=== PATIENT | female | born 1955 | race Caucasian/White ===

== ENCOUNTER → 2024-05-13 06:54 | Outpatient (REF) | payer MEDICARE, OTHER, SELFPAY ==
[2024-05-13 07:29] LABS: Urine Albumin Negative (Neg - Trace); Urine Bilirubin Negative (Negative); Urine Character Clear (Clear); Urine Color Yellow; Urine Glucose Negative (Negative); Urine Ketone Negative (Negative); Urine Leukocyte Trace (Negative); Urine Nitrite Negative (Negative); Urine Occult Blood Negative (Negative); Urine Specific Gravity 1.015 (<1.030); Urine Urobilinogen Negative (Neg - 1+)
[2024-05-13 07:38] LABS: % Basophils 1.1 % (0-2); % Eosinophils 8.3 % (0-6); % Immature Granulocytes 0.2 % (0-0.5); % Lymphocytes 41.1 % (20.5-51.1); % Monocytes 12.3 % (1.7-9.3); Absolute Basophils 0.1 10^3/uL (0-0.2); Absolute Eosinophils 0.4 10^3/uL (0-0.7); Absolute Lymphocytes 1.9 10^3/uL (1.2-3.4); Absolute Monocytes 0.6 10^3/uL (0.1-0.6); Absolute Neutrophils 1.7 10^3/uL (1.4-6.5); Hematocrit 45.5 % (37.0-47.0); Hemoglobin 14.7 g/dL (12.0-16.0); Mean Corp Hgb Conc. 32.3 g/dL (33.0-37.0); Mean Corpuscular Hgb 30.4 pg (27.0-31.0); Mean Corpuscular Volume 94.2 fL (81.0-99.0); Mean Platelet Volume 11.4 fL (7.4-10.4); Nucleated Red Blood Cells % 0 %; Platelet Count 123 10^3/uL (130-400); Red Blood Cell Count 4.83 10^6/uL (4.20-5.40); Red Cell Dist. Width 13.2 % (11.5-14.5); White Blood Cell Count 4.6 10^3/uL (4.8-10.8)
[2024-05-13 07:49] LABS: Urine Bacteria Few (Negative); Urine Urothelial Cell 0-2 /LPF (FEW)
[2024-05-13 07:56] LABS: ALT (SGPT) < 10 U/L (0-35); AST (SGOT) 40 U/L (14-36); Albumin 4.4 g/dl (3.5-5.0); Alkaline Phosphatase 99 U/L (38-126); Blood Urea Nitrogen 19 mg/dl (7-17); Calcium 10.2 mg/dl (8.4-10.2); Carbon Dioxide 32 mmol/L (22-30); Chloride 104 mmol/L (98-107); Glucose 88 mg/dl (70-99); Potassium 4.3 mmol/L (3.5-5.1); Sodium 142 mmol/L (135-145); Total Bilirubin 0.8 mg/dl (0.2-1.3); Total Protein 7.3 g/dl (6.3-8.2); eGFR > 60.00
[2024-05-13 07:58] LABS: C-Reactive Protein < 5.00 mg/L (0.0-10.00)
[2024-05-13 09:43] LABS: Erythrocyte Sed Rate 9 mm/hour (0-20)
[2024-05-14 01:23] LABS: Complement C3 113 mg/dl (88-165)
[2024-05-14 18:00] LABS: Cardiolipin IgA Antibody <10 APL (<=11); Cardiolipin IgM Antibody <10 MPL (<=12); Cardiolipin Igg Antibody <10 GPL (<=14)
[2024-05-14 21:12] LABS: ds-DNA Ab, IgG Reflex To Titer 7 IU (0-24)
[2024-05-14 22:32] LABS: ANA, IgG Reflex to HEp-2 Detected (None Detected)
[2024-05-15 20:23] LABS: SSA 52 (Ro)(ENA) Ab, IgG 2 AU/mL (0-40); SSA 60 (Ro)(ENA) Ab, IgG 0 AU/mL (0-40); SSB (La)(ENA) Ab, IgG 0 AU/mL (0-40)
== END ==
LOC: REG 06:54
PROVIDERS: ATTENDING PHYSICIAN Internal Medicine Rheumatology; FAMILY PHYSICIAN Internal Medicine
DX: D69.6 Thrombocytopenia, unspecified (principal); M35.9 Systemic involvement of connective tissue, unspecified
CPT/HCPCS: 36415; 80053; 81003; 81015; 85025; 85652; 86038; 86039; 86140; 86147; 86160; 86225; 86235

== ENCOUNTER → 2024-07-22 08:25 | Outpatient (REF) | payer MEDICARE, OTHER, SELFPAY | LOC: HWWDC 08:25 | PROVIDERS: ATTENDING PHYSICIAN Nurse Practitioner Family; FAMILY PHYSICIAN Internal Medicine; OTHER PHYSICIAN Internal Medicine Rheumatology; REFERRING PHYSICIAN Ophthalmology Ophthalmic Plastic and Reconstructive Surgery | DX: Z12.31 Encounter for screening mammogram for malignant neoplasm of breast (principal); H02.423 Myogenic ptosis of bilateral eyelids; H02.831 Dermatochalasis of right upper eyelid; H02.834 Dermatochalasis of left upper eyelid; Z41.1 Encounter for cosmetic surgery; H53.2 Diplopia; H04.123 Dry eye syndrome of bilateral lacrimal glands | CPT/HCPCS: 36415; 77063; 77067 ==

== ENCOUNTER → 2024-11-09 06:46 | Outpatient (REF) | payer MEDICARE, OTHER, SELFPAY ==
[2024-11-09 08:03] LABS: % Basophils 1.5 % (0-2); % Eosinophils 8.1 % (0-6); % Lymphocytes 40.4 % (20.5-51.1); % Monocytes 11.5 % (1.7-9.3); % Neutrophils 38.5 % (42.2-75.2); Absolute Basophils 0.1 10^3/uL (0-0.2); Absolute Eosinophils 0.4 10^3/uL (0-0.7); Absolute Lymphocytes 1.9 10^3/uL (1.2-3.4); Absolute Monocytes 0.5 10^3/uL (0.1-0.6); Absolute Neutrophils 1.8 10^3/uL (1.4-6.5); Hematocrit 44.4 % (37.0-47.0); Hemoglobin 14.5 g/dL (12.0-16.0); Mean Corp Hgb Conc. 32.7 g/dL (33.0-37.0); Mean Corpuscular Hgb 30.9 pg (27.0-31.0); Mean Corpuscular Volume 94.7 fL (81.0-99.0); Nucleated Red Blood Cells % 0 %; Platelet Count 120 10^3/uL (130-400); Red Blood Cell Count 4.69 10^6/uL (4.20-5.40); Red Cell Dist. Width 13.3 % (11.5-14.5); White Blood Cell Count 4.7 10^3/uL (4.8-10.8)
[2024-11-09 08:06] LABS: Erythrocyte Sed Rate 8 mm/hour (0-20)
[2024-11-09 08:10] LABS: ALT (SGPT) < 10 U/L (0-35); AST (SGOT) 41 U/L (14-36); Albumin 4.2 g/dl (3.5-5.0); Alkaline Phosphatase 82 U/L (38-126); Blood Urea Nitrogen 18 mg/dl (7-17); Calcium 9.6 mg/dl (8.4-10.2); Carbon Dioxide 32 mmol/L (22-30); Chloride 101 mmol/L (98-107); Glucose 89 mg/dl (70-99); Sodium 139 mmol/L (135-145); Total Bilirubin 0.5 mg/dl (0.2-1.3); Total Protein 6.7 g/dl (6.3-8.2); eGFR > 60.00
[2024-11-09 08:28] LABS: C-Reactive Protein < 5.00 mg/L (0.0-10.00)
[2024-11-09 08:34] LABS: Complement C3 118 mg/dl (88-165)
[2024-11-10 18:08] LABS: SSA 52 (Ro)(ENA) Ab, IgG 1 AU/mL (0-40); SSA 60 (Ro)(ENA) Ab, IgG 0 AU/mL (0-40); SSB (La)(ENA) Ab, IgG 0 AU/mL (0-40); Smith (ENA) Antibody, IgG 4 AU/mL (0-40)
[2024-11-10 19:58] LABS: Cardiolipin IgA Antibody <10 APL (<=11); Cardiolipin IgM Antibody <10 MPL (<=12); Cardiolipin Igg Antibody <10 GPL (<=14)
[2024-11-10 20:35] LABS: ds-DNA Ab, IgG Reflex To Titer 5 IU (0-24)
[2024-11-11 01:09] LABS: ANA, IgG Reflex to HEp-2 Detected (None Detected)
== END ==
LOC: REG 06:46
PROVIDERS: ATTENDING PHYSICIAN Internal Medicine Rheumatology; FAMILY PHYSICIAN Internal Medicine
DX: D69.6 Thrombocytopenia, unspecified (principal); M35.9 Systemic involvement of connective tissue, unspecified
CPT/HCPCS: 36415; 80053; 85025; 85652; 86038; 86039; 86140; 86147; 86160; 86225; 86235

== ENCOUNTER → 2025-02-02 07:13 | Outpatient (REF) | payer MEDICARE, OTHER, SELFPAY ==
[2025-02-02 08:01] LABS: HDL Cholesterol 93 mg/dl; LDL Cholesterol, Calculated 53 mg/dl; Total Cholesterol 159 mg/dl (50-199); Triglyceride 69 mg/dl (10-149); Very Low Density Lipoprotein 13 mg/dl (0-30)
[2025-02-02 08:33] LABS: TSH 4.89 uIU/ml (0.47-4.68)
== END ==
LOC: REG 07:13
PROVIDERS: ATTENDING PHYSICIAN Internal Medicine
DX: E78.2 Mixed hyperlipidemia (principal)
CPT/HCPCS: 36415; 80061; 84443

== ENCOUNTER → 2025-02-16 07:03 | Outpatient (REF) | payer MEDICARE, OTHER, SELFPAY ==
[2025-02-16 08:47] LABS: % Basophils 1.4 % (0-2); % Eosinophils 7.6 % (0-6); % Immature Granulocytes 0.2 % (0-0.5); % Lymphocytes 39.8 % (20.5-51.1); % Monocytes 12.6 % (1.7-9.3); % Neutrophils 38.4 % (42.2-75.2); Absolute Basophils 0.1 10^3/uL (0-0.2); Absolute Eosinophils 0.3 10^3/uL (0-0.7); Absolute Lymphocytes 1.7 10^3/uL (1.2-3.4); Absolute Monocytes 0.6 10^3/uL (0.1-0.6); Absolute Neutrophils 1.7 10^3/uL (1.4-6.5); Hemoglobin 14.1 g/dL (12.0-16.0); Mean Corp Hgb Conc. 33.6 g/dL (33.0-37.0); Mean Corpuscular Hgb 31.3 pg (27.0-31.0); Mean Corpuscular Volume 93.3 fL (81.0-99.0); Mean Platelet Volume 12.1 fL (7.4-10.4); Nucleated Red Blood Cells % 0 %; Platelet Count 118 10^3/uL (130-400); Red Cell Dist. Width 13.1 % (11.5-14.5); White Blood Cell Count 4.4 10^3/uL (4.8-10.8)
== END ==
LOC: REG 07:03
PROVIDERS: ATTENDING PHYSICIAN Internal Medicine
DX: D69.6 Thrombocytopenia, unspecified (principal)
CPT/HCPCS: 36415; 85025

== ENCOUNTER → 2025-03-10 09:02 | Outpatient (REF) | payer MEDICARE, OTHER, SELFPAY | LOC: HWRAD 09:02 | PROVIDERS: ATTENDING PHYSICIAN Nurse Practitioner Family; FAMILY PHYSICIAN Internal Medicine; REFERRING PHYSICIAN Physician Assistant | DX: Z13.820 Encounter for screening for osteoporosis (principal); M25.572 Pain in left ankle and joints of left foot; M79.672 Pain in left foot; Z78.0 Asymptomatic menopausal state | CPT/HCPCS: 73610; 73630; 77080 ==

== ENCOUNTER → 2025-04-15 07:19 | Outpatient (REF) | payer MEDICARE, OTHER, SELFPAY | LOC: MRI 07:19 | PROVIDERS: ATTENDING PHYSICIAN Physician Assistant; FAMILY PHYSICIAN Internal Medicine | DX: M25.572 Pain in left ankle and joints of left foot (principal) | CPT/HCPCS: 73720; 73721; A9575 ==

== ENCOUNTER → 2025-04-15 07:22 | Outpatient (REF) | payer MEDICARE, OTHER, SELFPAY | LOC: MRI 07:22 | PROVIDERS: ATTENDING PHYSICIAN Physician Assistant; FAMILY PHYSICIAN Internal Medicine | DX: M25.572 Pain in left ankle and joints of left foot (principal) | CPT/HCPCS: 73720; 73721; A9575 ==

== ENCOUNTER 2025-04-16 10:58 | Emergency (ER) | payer MEDICARE, OTHER, SELFPAY ==
[2025-04-16 11:03] VITALS: BP 141/84
--- NOTE | 2025-04-16 11:57 | ED.GENMED ---
History of Present Illness
General
Chief Complaint: Nose Bleed
Source: patient
Exam Limitations: none
Time Seen by Provider: 04/16/25 11:19
History of Present Illness
History of Present Illness:
See MDM
Past History
Past History
ED Past Medical History: Arrthythmia, Other (Distant history of migraines) and Other (TIA)
ED Past Surgical History: Orthopedic
Social History
Tobacco: Non-smoker
Alcohol: None
Drug: None
Personal:
Living: with family
Phy Exam
Physical Exam
Physical Exam:
See MDM
Course
Vital Signs
Initial and Last Documented VS:
Initial Vital Signs
Pulse Resp BP Pulse Ox
86 16 141/84 98
04/16/25 11:03 04/16/25 11:03 04/16/25 11:03 04/16/25 11:03
Last Documented Vital Signs
Pulse Resp BP Pulse Ox
86 16 141/84 98
04/16/25 11:03 04/16/25 11:03 04/16/25 11:03 04/16/25 11:03
Procedures
Nosebleed
Drug treatment: none
Treatment: Silver nitrate cautery
Post treatment bleeding: none- good control
MDM/Problems Addressed
Differential Diagnosis Includes:
HPI and MDM Narrative:
70-year-old female presenting for evaluation of right sided nosebleeding. She has had intermittent bleeds over the past month. However, they usually self resolved. Patient was worried because this month is not resolving. She is on Eliquis.
Patient was given a nose clamp. On my examination, all the bleeding has resolved. There is an exposed area to the nasal septum. She tolerated procedure well. Discussed follow-up with ENT
Physical exam
General: Well appearing and non-toxic
HEENT: protecting airway. Exposed excoriation to right nasal septum. No active bleeding
Neck: appears supple
CV: No evidence of cyanosis
Resp: No accessory muscle use
Abd: Non-distended
Extremities: No deformities
Neuro: alert
Psych: Normal affect
Skin: Intact
Problems Addressed including Acute and Chronic Conditions affecting care:
1. Right anterior nosebleed
Acuity: acute
Prognosis: stable
Details: After cauterization, no evidence of bleeding. Patient monitored for rebleeding
Differential Diagnosis (but not limited to): Anterior epistaxis, posterior epistaxis
Testing considered: Hemoglobin testing
Drug therapy (if applicable): OTC meds, please see d/c instruction regarding Rx drugs
Amount and/or Complexity of Data Reviewed
Clinical info obtained from: Patient
External data reviewed: N/A
Labs I independently reviewed (but not limited to): N/A
Radiology: N/A
Pulse Ox: not hypoxic
EKG independently reviewed: N/A
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
Critical Care: N/A
Risk of Complication:
Social Determinants of health: Good social support
Discussed with other providers: N/A
Escalation of Care includes Admit/Obs: After being observed in the Emergency Department, pt stable for discharge.
Occasional wrong word or 'sound a like' substitutions may have occurred due to the inherent limitations of voice recognition software. Read the chart carefully and recognize, using context, where substitutions have occurred.
*Critical Care Note
Total Time (30-74mins, 75-104mins- exclusive of procedures): Not Applicable
ED Attending Note
-
Portions of this chart may have been created with voice recognition software.� Occasional wrong word or��sound alike� substitutions may have occurred due to the inherent limitations of voice recognition software.
Discharge Plan
Departure
Patient Disposition: Home (Routine Discharge)
Date of Disposition: 04/16/25
Time of Disposition: 12:09
Patient with high blood pressure during this ER visit?: No
Discharge Problem:
Acute anterior epistaxis
Instructions: Nosebleeds (DC)
Prescriptions:
No Action
cyclosporine [Restasis] 10 DROPS dropperette
1 drp ophthalmic (eye) BID
rosuvastatin 5 MG tablet
5 mg PO HS
wheat dextrin [Benefiber Sugar Free (dextrin)] 350 GM powder
2 tsp PO BID
cjuhydsh-ufb-bobs-FA-vit K-lut [Multivitamin Women 50 Plus] 1 EACH tablet
1 ea PO DAILY
bkszj-2d-rcc-epa-fish oil 1 EACH capsule
1 ea PO DAILY
biotin 1,000 MCG tablet,chewable
1,000 mcg PO DAILY
Lactobacill 46-B.animal-inulin [Probiotic-10 (with inulin)] 1 EACH capsule
1 ea PO DAILY
Multicollagen Protein
2 scoop PO DAILY
apixaban [Eliquis] 5 MG tablet
5 mg PO BID Qty: 60 5RF
cetirizine 10 MG tablet
10 mg PO HS
flaxseed oil 1,000 MG capsule
1,300 mg PO DAILY
flecainide 50 MG tablet
100 mg PO Q12H
cholecalciferol (vitamin D3) [Vitamin D3] 1,000 UNIT capsule
1,000 unit PO QPM
coenzyme Q10 [Co Q-10] 200 MG capsule
200 mg PO DAILY
Calcium/D3/Mag/K2/Min/Herb 326 [Algae Based Calcium Tablet] 1 EACH Tablet
2 ea PO BID
Garlic 400 MG Tablet
1,200 mg PO DAILY
Gluten Assist
1 tab PO PRN PRN (Reason: GI )
Lactase
1 tab PO PRN PRN (Reason: GI)
Referrals:
Neftali Cornelius MD [Active, ENT]
Sin Cardona DO [Family Provider, Internal Medicine]
Activity Restrictions/Additional Instructions:
Please return for any worsening symptoms.
You may return at any time if you have further concerns.
Please follow up with your doctor at the first available appointment, preferably this week.
Please make an appointment to see the ENT.
Thank you for choosing [facility].
Interventions
Interventions:
*Risk Screen - Suicide Last Done: 04/16/25 11:03
*General Assessment Last Done: 04/16/25 12:04
*Neglect/Abuse Screening Last Done: 04/16/25 11:03
*ED COVID-19 Vaccine History Last Done: 04/16/25 12:04
ED-EENT Assessment Last Done: 04/16/25 12:03
Discharge Date and Time
Print Language: [place] CITIZEN
== END 2025-04-16 12:13 | disposition home or self-care (01) ==
LOC: EMR 10:58
PROVIDERS: EMERGENCY PHYSICIAN Student in an Organized Health Care Education/Training Program; FAMILY PHYSICIAN Internal Medicine
DX: R04.0 Epistaxis (principal); Z86.73 Personal history of transient ischemic attack (TIA), and cerebral infarction without residual deficits
CPT/HCPCS: 99282; 30901

== ENCOUNTER → 2025-08-24 12:46 | Outpatient (REF) | payer MEDICARE, OTHER, SELFPAY | LOC: WDC 12:46 | PROVIDERS: ATTENDING PHYSICIAN Nurse Practitioner Family; FAMILY PHYSICIAN Internal Medicine | DX: Z12.31 Encounter for screening mammogram for malignant neoplasm of breast (principal) | CPT/HCPCS: 77063; 77067 ==